=== PATIENT | male | born 1990 | race Caucasian/White ===

== ENCOUNTER 2019-02-07 06:13 | Day surgery (SDC) | payer OTHER ==
[2019-02-07] MEDS ORDERED: LIDOCAINE HCL/MPF 1% 30 ML VIAL IJ ONE (06:35)
[2019-02-07] MEDS ORDERED: methylPREDNISolone ACETATE 80 MG/ML VIAL ONE (06:35)
[2019-02-07] MEDS ORDERED: ANESTHESIA TRAY IN PYXIS 1 EA TRAY MC ONE (06:35)
[2019-02-07] MEDS ORDERED: EPINEPHRINE (1:1000) 1 MG/ML AMPUL ONE (06:35)
[2019-02-07] MEDS ORDERED: HYDROMORPHONE INJ 2 MG/ML DISP.SYRIN ONE (09:38)
[2019-02-07] MEDS ORDERED: ONDANSETRON HCL/PF 4 MG/2 ML VIAL ONE (09:49)
[2019-02-07] MEDS ORDERED: HYDROCODONE/APAP 5/325MG 1 EACH TABLET ONE (10:08)
[2019-02-07] MEDS ORDERED: FENTANYL PF 100MCG/2ML AMPUL ONE (11:50)
[2019-02-07] MEDS ORDERED: ROCURONIUM BROMIDE 50 MG/5 ML ONE (11:50)
[2019-02-07] MEDS ORDERED: MIDAZOLAM HCL 2 MG/2ML VIAL ONE (11:50)
== END 2019-02-07 11:00 | disposition home or self-care (01) ==
LOC: DS 06:13
PROVIDERS: ATTEND Specialist
DX: M75.42 Impingement syndrome of left shoulder (principal); M65.812 Other synovitis and tenosynovitis, left shoulder; M75.22 Bicipital tendinitis, left shoulder
CPT/HCPCS: 23430; 29806; A4217; J0171; J0690; J1100; J1170; J1200; J2250; J2405 ×2; J2704; J2765; J3010; J3490 ×2; J1040